=== PATIENT | female | born 1970 | race Hispanic/Latino ===

== ENCOUNTER 2016-06-21 23:12 | Emergency (ER) | payer OTHER ==
[2016-06-22 01:33] VITALS: BMI 20.9
[2016-06-22 01:35] VITALS: BP 111/67; PULSE 85; O2SAT 98
[2016-06-22] MEDS ORDERED: guaiFENesin 200 mg/10 ml Syrup UD PO STA (01:42)
--- NOTE | 2016-06-22 01:47 | ED PDOC ---
Arrival/HPI - General Historian: Patient <Zuleika Patricio - Last Filed: 06/22/16 01:43> <Ulices Rincon - Last Filed: 06/22/16 02:04> - General Chief Complaint: Medical Clearance Time Seen by Provider: 06/22/16 01:42 - History of Present Illness Narrative History of Present Illness (Text): 06/22/16 01:43 45yo female present with complaint of clear productive cough, sore throat, watery eyes, body ache since this morning. She did not take any medication. Denies fever, chills, abdominal pain, nausea, vomiting, any other complaint. ( SintiaZuleika A) Past Medical History - Provider Review Nursing Documentation Reviewed: Yes - Psychiatric Hx Substance Use: No <Zuleika Patricio - Last Filed: 06/22/16 01:43> Family/Social History - Physician Review Nursing Documentation Reviewed: Yes Family/Social History: Unknown Family HX Smoking Status: Never Smoked Hx Alcohol Use: No Hx Substance Use: No <Zuleika Patricio - Last Filed: 06/22/16 01:43> Allergies/Home Meds <Zuleika Patricio - Last Filed: 06/22/16 01:43> <Ulices Rincon - Last Filed: 06/22/16 02:04> Allergies/Adverse Reactions: Allergies No Known Allergies Allergy (Verified 06/22/16 01:32) Review of Systems - Physician Review All systems were reviewed & negative as marked: Yes - Review of Systems Constitutional: Normal Eyes: Other (EAry eyes) ENT: Sore Throat Respiratory: Cough Cardiovascular: Normal Gastrointestinal: Normal Genitourinary Female: Normal Musculoskeletal: Normal Skin: Normal Neurological: Normal Endocrine: Normal Hemo/Lymphatic: Normal Psychiatric: Normal <Zuleika Patricio A - Last Filed: 06/22/16 01:43> Physical Exam Vital Signs Reviewed: Yes Temperature: Afebrile Blood Pressure: Normal Pulse: Regular Respiratory Rate: Normal Appearance: Positive for: Well-Appearing, Non-Toxic, Comfortable Pain Distress: None Mental Status: Positive for: Alert and Oriented X 3 - Systems Exam Head: Present: Atraumatic, Normocephalic Pupils: Present: PERRL Extroacular Muscles: Present: EOMI Conjunctiva: Present: Normal Mouth: Present: Moist Mucous Membranes Pharnyx: Present: ERYTHEMA. No: EXUDATE, TONSILS ENLARGED, Peritonsilar Swelling, Uvular Deviation, Muffled/Hoarse Voice, Strider Neck: Present: Normal Range of Motion Respiratory/Chest: Present: Clear to Auscultation, Good Air Exchange. No: Respiratory Distress, Accessory Muscle Use, Wheezes, Decreased Breath Sounds, Rales, Retracting, Rhonchi Cardiovascular: Present: Regular Rate and Rhythm, Normal S1, S2. No: Murmurs Abdomen: Present: Normal Bowel Sounds. No: Tenderness, Distention, Peritoneal Signs Back: Present: Normal Inspection Upper Extremity: Present: Normal Inspection. No: Cyanosis, Edema Lower Extremity: Present: Normal Inspection. No: Edema Neurological: Present: GCS=15, CN II-XII Intact, Speech Normal Skin: Present: Warm, Dry, Normal Color. 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 <Ulices Rincon - Last Filed: 06/22/16 02:04> Disposition/Present on Arrival - Present on Arrival Any Indicators Present on Arrival: No History of DVT/PE: No History of Uncontrolled Diabetes: No Urinary Catheter: No History of Decub. Ulcer: No History Surgical Site Infection Following: None - Disposition Have Diagnosis and Disposition been Completed?: Yes Disposition Time: 01:50 Patient Plan: Discharge <Zuleika Patricio - Last Filed: 06/22/16 01:43> <Ulices Rincon - Last Filed: 06/22/16 02:04> - Disposition Diagnosis: URI (upper respiratory infection) Discharge Instructions (ExitCare): Upper Respiratory Infection (ED) Additional Instructions: Follow up with your Doctor/Clinic Return to ED for any new or worsening symptoms Prescriptions: Loratadine/Pseudoephedrine [Claritin-D 24 Hour Tablet] 1 each PO DAILY #20 tab.er.24h Benzonatate [Tessalon Perle] 100 mg PO TID #20 capsule Azithromycin [Zithromax] 250 mg PO DAILY #4 tab Ref[place]: [facility] [place] - Follow up with primary Forms: WORK NOTE
[2016-06-22 02:51] VITALS: RESP 16; TEMP 98.1
== END 2016-06-22 02:51 | disposition home or self-care (01) ==
LOC: ED 23:12
DX: J06.9 Acute upper respiratory infection, unspecified (principal)

== ENCOUNTER 2017-12-07 01:08 | Emergency (ER) | payer OTHER, MEDICAID ==
[2017-12-07 01:09] VITALS: BMI 20.9
[2017-12-07 01:32] VITALS: RESP 18; TEMP 97.6; O2SAT 99
[2017-12-07] MEDS ORDERED: Sodium Chloride 0.9% 1,000 ML IV STA (02:47)
--- NOTE | 2017-12-07 02:52 | ED PDOC ---
Arrival/HPI - General Chief Complaint: Shortness Of Breath Time Seen by Provider: 12/07/17 02:33 Historian: Patient - History of Present Illness Narrative History of Present Illness (Text): 12/07/17 02:46 47 year old female, with no significant past medical history, presents to the emergency department for evaluation, status post episode of shortness of breath at about 00:00 today. Patient states she felt dizzy and felt like she couldn't breath. Shes notes the dizziness like a vertigo, not a headache or lightheadedness. No previous occurence. She notes SOB began after she felt dizzy. No chest pain. Patient states she does have a PMD and has not seen one in about a year. Patient denies any fevers, chills, cough, abdominal pain, diarrhea, back pain, neck pain, urinary/bowel changes, or any other complaint. 12/07/17 05:11 Time/Duration: 1-3 hours Activities at Onset: Sleeping Context: Home Past Medical History - Provider Review Nursing Documentation Reviewed: Yes - Psychiatric Hx Substance Use: No - Anesthesia Hx Anesthesia: No Family/Social History - Physician Review Nursing Documentation Reviewed: Yes Family/Social History: No Known Family HX Smoking Status: Never Smoked Hx Alcohol Use: No Hx Substance Use: No Allergies/Home Meds Allergies/Adverse Reactions: Allergies No Known Allergies Allergy (Verified 12/07/17 01:24) Review of Systems - Physician Review All systems were reviewed & negative as marked: Yes - Review of Systems Constitutional: absent: Fevers, Night Sweats Respiratory: SOB. absent: Cough Gastrointestinal: absent: Abdominal Pain, Diarrhea Genitourinary Female: absent: Urine Output Changes Musculoskeletal: absent: Back Pain, Neck Pain Neurological: Dizziness Physical Exam - Physical Exam Narrative Physical Exam (Text): 12/07/17 02:53 Head: Atraumatic. Normocephalic. Eyes: PERRL. EOMI. Conjunctivae are not pale. ENT: Mucous membranes are moist and intact. Oropharynx is clear and symmetric. Neck: Supple. Full ROM. No JVD. No lymphadenopathy. Cardiovascular: Regular rate. Regular rhythm. No murmurs, rubs, or gallops. Distal pulses are 2+ and symmetric. Pulmonary/Chest: No evidence of respiratory distress. Clear to auscultation bilaterally. No wheezing, rales or rhonchi. Abdominal: Soft and non-distended. There is no tenderness. No rebound, guarding, or rigidity. No organomegaly. Good bowel sounds. Back: No CVA tenderness. Extremities: No edema. No cyanosis. No clubbing. Full range of motion in all extremities. No calf tenderness. Skin: Skin is warm and dry. No petechiae. No purpura. Neurological: Alert, awake, and oriented to person, place, time, and situation. Normal speech. Normal CN, Beating Horizontal nystagmus which fatigues. Psychiatric: Good eye contact. Normal interaction, affect, and behavior. 12/07/17 05:10 Vital Signs Temp Pulse Resp BP Pulse Ox 12/07/17 01:30 97.6 F 65 18 115/59 L 99 12/07/17 01:24 20 Medical Decision Making ED Course and Treatment: 12/07/17 02:54 Impression: 47 year old female presents for evaluation status post feeling short of breath. No meningeal signs. L sided lipoma. No cervical tenderness. No FND. Only dizziness described as vergito w/ head movement. SOB likely due to anxiety as pt noted feeling anxious after she felt the world spinning. No hx of blood clots, venous stasis, recent trauma or surgeries. Lipoma to L neck previously diagnosed. Appears like a lipoma, non fluctuant, non ttp, mobile, no crepitus. Dizziness likely 2/2 periphreal cause: horizontal beating nystagmus which fatigues, Neuro exam otherwise unremarkable. No CP. Low pretest wells: PERC OUT. Plan: -- CT C-Spine -- CT Head -- Chest X-ray -- Antivert -- Zofran -- Labs -- Reassess and disposition Progress Notes: 12/07/17 02:56 EKG reviewed, shows: Normal sinus rhythm @ 70bpm No STEMI. 12/07/17 0430 dizziness resolved. strong steady gait. nystagmus resolved. Neuro exam remains unremarkable and w/ out cerebllar signs. CTH unremarkable Xray unremarkable CT Neck w/ fibronodular scarring of lungs - endorsed to pt - Scribe Statement The provider has reviewed the documentation as recorded by the Carmen Onofre Provider Scribe Attestation: All medical record entries made by the Carlaibradha were at my direction and personally dictated by me. I have reviewed the chart and agree that the record accurately reflects my personal performance of the history, physical exam, medical decision making, and the department course for this patient. I have also personally directed, reviewed, and agree with the discharge instructions and disposition. Disposition/Present on Arrival - Present on Arrival Any Indicators Present on Arrival: No History of DVT/PE: No History of Uncontrolled Diabetes: No Urinary Catheter: No History of Decub. Ulcer: No History Surgical Site Infection Following: None - Disposition Have Diagnosis and Disposition been Completed?: Yes Diagnosis: BPV (benign positional vertigo) Disposition: HOME/ ROUTINE Disposition Time: 04:30 Patient Problems: Current Active Problems Problem Status Onset BPV (benign positional vertigo) Acute Condition: GOOD Discharge Instructions (ExitCare): Vertigo (a Type of Dizziness) Additional Instructions: FOLLOW UP WITH YOUR PRIMARY CARE DOCTOR OR DR. CARDOZO. ALSO ASK THEM TO REFER YOU TO A MANAGER PERSONAL. SEE THE NEUROLOGIST LIKE WE DISCUSSED WELL. TONYA URBINA, thank you for letting us take care of you today. Your provider was Willian Harmon and you were treated for trouble breathing / dizzy. The emergency medical care you received today was directed at your acute symptoms. If you were prescribed any medication, please fill it and take as directed. It may take several days for your symptoms to resolve. Return to the Emergency Department if your symptoms worsen, do not improve, or if you have any other problems. Please contact your doctor or call one of the physicians/clinics you have been referred to that are listed on the Patient Visit Information form that is included in your discharge packet. Bring any paperwork you were given at discharge with you along with any medications you are taking to your follow up visit. Our treatment cannot replace ongoing medical care by a primary care provider outside of the emergency department. Thank you for allowing the [facility] team to be part of your care today. If you had an X-Ray or CT scan: A Radiologist will review the ED reading if any change in treatment is needed we will contact you. If you had a blood, urine, or wound culture: It will take several days for the results, if any change in treatment is needed we will contact you. If you had an STI test: It will take 48 hours for the results. Please call after 1 week if you have not heard back. Prescriptions: Meclizine [Antivert] 12.5 mg PO QID PRN 3 Days #12 tab PRN Reason: vertigo Referrals: Jarrod Echevarria MD [Primary Care Provider] - Follow up with primary Bertha Adams MD [Medical Doctor] - Follow up with primary Alexander Beltran MD [Staff Provider] - Follow up with primary Forms: [employer] (Swedish)
[2017-12-07 03:57] LABS: BASO # 0.03 K/mm3 (0.0-2.0); BASO % 0.3 % (0.0-3.0); EOS # 0.1 (0.0-0.7); EOS % 0.8 % (1.5-5.0); GRAN # 6.5 (1.4-6.5); GRAN % 74.5 % (50.0-68.0); HEMOGLOBIN 13.7 g/dL (12.0-16.0); LYMPH # 1.5 (1.2-3.4); LYMPH % 17.4 % (22.0-35.0); MEAN CELL VOLUME 86.3 fl (80.0-105.0); MEAN CORPUSCULAR HEMOGLOBIN 29.8 pg (25.0-35.0); MEAN CORPUSCULAR HGB CONC 34.5 g/dl (31.0-37.0); MEAN PLATELET VOLUME 11.8 fl (7.0-11.0); MONO # 0.6 (0.1-0.6); RBC 4.6 10^6/uL (3.5-6.1); RED CELL DISTRIBUTION WIDTH 12.6 % (11.5-14.5); WHITE BLOOD COUNT 8.7 10^3/ul (4.5-11.0)
[2017-12-07 04:14] LABS: ALB/GLOB RATIO 1.2 (1.1-1.8); ALBUMIN 3.8 g/dL (3.0-4.8); ALT/SGPT 24 U/L (7-56); AST/SGOT 20 U/L (14-36); BLOOD UREA NITROGEN 12 mg/dL (7-21); GFR NON-AFRICAN AMERICAN > 60
[2017-12-07 04:24] LABS: TROPONIN I < 0.01 ng/mL
[2017-12-07 06:23] VITALS: BP 115/72; PULSE 80
--- NOTE | 2017-12-07 08:15 | CT ---
Date of service: 12/07/2017 PROCEDURE: CT HEAD WITHOUT CONTRAST. HISTORY: vertigo COMPARISON: None available. TECHNIQUE: Axial computed tomography images were obtained through the head/brain without intravenous contrast. Radiation dose: Total exam DLP = 858 mGy-cm. This CT exam was performed using one or more of the following dose reduction techniques: Automated exposure control, adjustment of the mA and/or kV according to patient size, and/or use of iterative reconstruction technique. FINDINGS: HEMORRHAGE: No intracranial hemorrhage. BRAIN: No mass effect or edema. No atrophy or chronic microvascular ischemic changes. VENTRICLES: Unremarkable. No hydrocephalus. CALVARIUM: Unremarkable. PARANASAL SINUSES: Unremarkable as visualized. No significant inflammatory changes. MASTOID AIR CELLS: Unremarkable as visualized. No inflammatory changes. OTHER FINDINGS: The report concurs with the preliminary [facility] report IMPRESSION: No acute intracranial findings
--- NOTE | 2017-12-07 08:18 | CT ---
Date of service: 12/07/2017 PROCEDURE: CT Cervical Spine without contrast HISTORY: vertigo, L lipoma COMPARISON: None available. TECHNIQUE: Axial computed tomography images were obtained of the cervical spine without the use of intravenous contrast. Coronal and sagittal reformatted images were created and reviewed. Radiation dose: Total exam DLP = 260 mGy-cm. This CT exam was performed using one or more of the following dose reduction techniques: Automated exposure control, adjustment of the mA and/or kV according to patient size, and/or use of iterative reconstruction technique. FINDINGS: VERTEBRAE: No fracture. Normal alignment. No destructive bony lesion. DISCS/SPINAL CANAL/NEURAL FORAMINA: No significant central canal or neural foraminal stenosis. Discs heights are grossly preserved. PARASPINAL SOFT TISSUES: Severe biapical scarring OTHER FINDINGS: The report concurs with the preliminary report IMPRESSION: Unremarkable CT of the cervical spine.
--- NOTE | 2017-12-07 10:15 | RAD ---
Date of service: 12/07/2017 HISTORY: Shortness of breath COMPARISON: No prior. FINDINGS: LUNGS: The lungs are well inflated. There are fibrotic changes and nodular opacities in the upper lobes. PLEURA: No significant pleural effusion identified, no pneumothorax apparent. CARDIOVASCULAR: Normal. OSSEOUS STRUCTURES: No significant abnormalities. VISUALIZED UPPER ABDOMEN: Normal. OTHER FINDINGS: None. IMPRESSION: Fibro nodular disease in both upper lobes, nonspecific and could represent atypical pneumonia. No lobar pneumonia. Clinical correlation is advised. Follow-up to resolution is advised.
--- NOTE | 2017-12-07 16:07 | CARD ---
APPROVED REPORT Date of service: 12/07/2017 EKG Measurement Heart [id number] <Conclusion> Normal sinus rhythm RSR' or QR pattern in V1 suggests right ventricular conduction delay Borderline ECG
== END 2017-12-07 06:23 | disposition home or self-care (01) ==
LOC: ED 01:08
DX: H81.10 Benign paroxysmal vertigo, unspecified ear (principal)
CPT/HCPCS: 70450; 71045; 72125; 80053; 83735; 84484; 85025; 93005; 96361; 96374; 99284; J2405; J7030

== ENCOUNTER 2018-03-17 20:42 | Emergency (ER) | payer OTHER, MEDICAID ==
[2018-03-17 20:42] VITALS: BMI 20.9
[2018-03-17 21:13] VITALS: TEMP 98.3
[2018-03-17] MEDS ORDERED: Sodium Chloride 0.9% 1,000 ML IV STA (21:20)
--- NOTE | 2018-03-17 21:35 | ED PDOC ---
Arrival/HPI <MckenzieUlices - Last Filed: 03/17/18 22:36> - General Historian: Patient - History of Present Illness Narrative History of Present Illness (Text): Patient is a 47 F with no PMH who presents to [facility] [place] emergency department after 2 days of cough productive of yellow sputum, congestion,SOB and chest pain associated with coughing, fevers, chills, body aches, abdominal pain, headache and nausea. She admits to notveing gotten her flu shot this year but denies recent sick contacts. 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 She otherwise denies constant chest pain, constant SOB, dizziness, vomiting, dysuria, stool changes, diarrhea and extremity pain/weakness. She is a former smoker (quit 9 yrs ago) and denies ETOh or illicit drug use. 03/17/18 21:30 03/17/18 22:08 Time/Duration: Other (2-3 days) Symptom Onset: Gradual Symptom Course: Unchanged Severity Level: 7, Moderate <Marlyn Ernst - Last Filed: 03/17/18 23:23> - General Chief Complaint: Cough, Cold, Congestion Time Seen by Provider: 03/17/18 20:58 Past Medical History - Provider Review Nursing Documentation Reviewed: Yes - Infectious Disease Hx of Infectious Diseases: None - Psychiatric Hx Substance Use: No - Anesthesia Hx Anesthesia: No <Marlyn Ernst - Last Filed: 03/17/18 23:23> Family/Social History - Physician Review Nursing Documentation Reviewed: Yes Family/Social History: Unknown Family HX Smoking Status: Former Smoker Hx Alcohol Use: No Hx Substance Use: No <Marlyn Ernst - Last Filed: 03/17/18 23:23> Allergies/Home Meds <MckenzieUlices - Last Filed: 03/17/18 22:36> <Marlyn Ernst - Last Filed: 03/17/18 23:23> Allergies/Adverse Reactions: Allergies No Known Allergies Allergy (Verified 03/17/18 21:08) Review of Systems - Physician Review All systems were reviewed & negative as marked: Yes - Review of Systems Constitutional: Fatigue, Fevers Eyes: absent: Vision Changes Respiratory: SOB, Cough Cardiovascular: absent: Edema, Calf Pain, Syncope Gastrointestinal: Abdominal Pain, Nausea. absent: Stool Changes, Constipation, Diarrhea, Vomiting, Hematochezia, Hematemesis Genitourinary Female: absent: Dysuria Musculoskeletal: absent: Arthralgias, Back Pain Skin: absent: Rash, Laceration, Abscess Neurological: Headache. absent: Dizziness, Focal Weakness, Speech Changes, Facial Droop Endocrine: absent: Diaphoresis Psychiatric: Anxiety <Marlyn Ernst - Last Filed: 03/17/18 23:23> Physical Exam Vital Signs Temp Pulse Resp BP Pulse Ox 03/17/18 21:11 98.3 F 99 H 16 113/52 L 100 <Ulices Rincon - Last Filed: 03/17/18 22:36> Vital Signs Temp Pulse Resp BP Pulse Ox 03/17/18 21:11 98.3 F 99 H 16 113/52 L 100 Temperature: Afebrile Blood Pressure: Normal Pulse: Tachycardic Respiratory Rate: Normal Appearance: Positive for: Well-Appearing, Non-Toxic, Uncomfortable Pain Distress: Mild Mental Status: Positive for: Alert and Oriented X 3 - Systems Exam Head: Present: Atraumatic, Normocephalic Extroacular Muscles: Present: EOMI Mouth: Present: Dry Respiratory/Chest: Present: Clear to Auscultation. No: Respiratory Distress, Accessory Muscle Use Cardiovascular: Present: Normal S1, S2, Tachycardic. No: Murmurs Abdomen: No: Tenderness, Distention, Peritoneal Signs, Rebound, Guarding Upper Extremity: Present: Normal Inspection, Normal ROM, NORMAL PULSES. No: Cyanosis, Edema Lower Extremity: Present: Normal Inspection, NORMAL PULSES. No: Edema, CALF TENDERNESS Neurological: Present: GCS=15, CN II-XII Intact, Speech Normal Skin: Present: Warm, Dry, Normal Color. No: Rashes Psychiatric: Present: Alert, Oriented x 3, Normal Insight, Normal Concentration <Marlyn Ernst - Last Filed: 03/17/18 23:23> Medical Decision Making ED Course and Treatment: Impression: Pt seen and evaluated with resident. Aware and agree with HPI, clinical findings, plan, and management. Pt, with no past medical history, presented for cough, congestion, shortness of breath, and chest pain. Plan: -- EKG -- Labs -- Rapid influenza -- IV fluids -- Zofran -- Reassess and disposition - Medication Orders Current Medication Orders: Sodium Chloride (Sodium Chloride 0.9%) 1,000 mls @ 999 mls/hr IV .Q1H1M STA Stop: 03/17/18 22:20 Last Admin: 03/17/18 21:37 Dose: 999 mls/hr eMAR Start Stop Document 03/17/18 21:37 JOL (Rec: 03/17/18 21:37 [id number] Intravenous Solution Start Date 03/17/18 Start Time 21:37 End Date 03/17/18 End time 22:38 Total Infusion Time 61 Discontinued Medications Ondansetron HCl (Zofran Inj) 4 mg IVP STAT STA Stop: 03/17/18 21:21 Last Admin: 03/17/18 21:36 Dose: 4 mg IVP Administration Document 03/17/18 21:36 JOL (Rec: 03/17/18 21:36 [facility] [id number]) Charges for Administration # of IVP Administrations 1 <Ulices Rincon - Last Filed: 03/17/18 22:36> ED Course and Treatment: Impression: 47 yr old female with cough, congestion, f/c, nausea and body aches, no PMH and no flu shot this year Plan: rapid flu cbc cmp EKG IVF zofran POC urine preg CXR reassess and dispo 03/17/18 21:39 symptoms improved with fluids and zofran 03/17/18 22:14 CXR: no acute cardiopulmonary process, my read discussed with Dr. Rincon who agrees 03/17/18 23:22 - Medication Orders Current Medication Orders: Sodium Chloride (Sodium Chloride 0.9%) 1,000 mls @ 999 mls/hr IV .Q1H1M STA Stop: 03/17/18 22:20 Discontinued Medications Ondansetron HCl (Zofran Inj) 4 mg IVP STAT STA Stop: 03/17/18 21:21 <Marlyn Ernst - Last Filed: 03/17/18 23:23> - PA / FLEXIBLE MACHINING SYSTEM MACHINIST / Resident Statement ALLYSON has reviewed & agrees with the documentation as recorded. ALLYSON has examined the patient and agrees with the treatment plan. <Ulices Rincon - Last Filed: 03/17/18 22:36> Disposition/Present on Arrival <Uliecs Rincon - Last Filed: 03/17/18 22:36> - Present on Arrival Any Indicators Present on Arrival: No History of DVT/PE: No History of Uncontrolled Diabetes: No Urinary Catheter: No History of Decub. Ulcer: No History Surgical Site Infection Following: None - Disposition Have Diagnosis and Disposition been Completed?: Yes Disposition Time: 22:40 Patient Plan: Discharge <Marlyn Ernst - Last Filed: 03/17/18 23:23> - Disposition Diagnosis: Flu-like symptoms, Bronchitis Disposition: HOME/ ROUTINE Patient Problems: Current Active Problems Problem Status Onset Flu-like symptoms Acute Bronchitis Acute Condition: IMPROVED Discharge Instructions (ExitCare): Acute Bronchitis, Adult (DC) Additional Instructions: Upon discharge please follow up with your primary care physician within 3-5 days for follow up. You have been given the following prescriptions: Azithromycin 250mg tablet take by mouth Daily for 6 days Oseltamivir (tamiflu) 75 mg tablet take one tablet by mouth twice daily for 5 days If symptoms worsen/ return or if new concerning symptoms develop please return to the nearest emergency department for evaluation. Prescriptions: Oseltamivir Cap [Tamiflu] 75 mg PO BID #10 cap Azithromycin [Z-Jah] 250 mg PO DAILY #6 tab Forms: [facility] (Latvian), WORK NOTE
[2018-03-17 21:56] LABS: ALB/GLOB RATIO 1.2 (1.1-1.8); ALBUMIN 3.7 g/dL (3.0-4.8); ALT/SGPT 34 U/L (7-56); AST/SGOT 24 U/L (14-36); BLOOD UREA NITROGEN 11 mg/dL (7-21); CALCIUM 8.7 mg/dL (8.4-10.5); GFR NON-AFRICAN AMERICAN > 60
[2018-03-17 21:59] LABS: BASO # 0.01 K/mm3 (0.0-2.0); BASO % 0.1 % (0.0-3.0); GRAN # 10.08 (1.4-6.5); GRAN % 86.6 % (50.0-68.0); LYMPH # 0.6 (1.2-3.4); LYMPH % 4.7 % (22.0-35.0); MEAN CELL VOLUME 87.3 fl (80.0-105.0); MEAN CORPUSCULAR HEMOGLOBIN 29.5 pg (25.0-35.0); MEAN CORPUSCULAR HGB CONC 33.8 g/dl (31.0-37.0); MEAN PLATELET VOLUME 11.7 fl (7.0-11.0); MONO % 8.6 % (1.0-6.0); PLATELET COUNT 138 10^3/uL (120.0-450.0); RBC 4.41 10^6/uL (3.5-6.1); RED CELL DISTRIBUTION WIDTH 12.3 % (11.5-14.5); WHITE BLOOD COUNT 11.6 10^3/uL (4.5-11.0)
[2018-03-17] MEDS ORDERED: Magnesium Sulfate 1 gm in D5W 1 GM/100 ML BAG IVPB ONE (22:00)
[2018-03-17] MEDS ORDERED: Potassium & Sodium Phosphate PO ONE (22:01)
[2018-03-17 22:19] LABS: ATYPICAL LYMPHOCYTE 5 % (0.0-0.0); BAND 2 % (0-2); LYMPHOCYTE 3 % (22.0-35.0); MONOCYTE 0 % (1.0-6.0); NEUTROPHIL 90 % (50.0-70.0)
[2018-03-17 23:43] VITALS: BP 115/68; PULSE 78; RESP 18; O2SAT 99
--- NOTE | 2018-03-18 10:19 | RAD ---
Date of service: 03/17/2018 HISTORY: Cough. COMPARISON: 12/07/2017 single-view chest FINDINGS: LUNGS: Fibronodular changes in the apices. Possible left upper lobe pulmonary nodule. The finding is marked on the study for review. PLEURA: Apical pleural thickening. CARDIOVASCULAR: No atherosclerotic calcification present Normal. OSSEOUS STRUCTURES: No significant abnormalities. VISUALIZED UPPER ABDOMEN: Normal. OTHER FINDINGS: None. IMPRESSION: 1. Apical pleural thickening, upper lobe fibronodular changes. 2. Questionable left upper lobe nodule. Recommendations for follow-up: Elective CT scan of the thorax. Per institutional protocol, and based on the recommendation for elective follow-up, study will be placed in the physician assistant golf professional file for review, triage and final disposition.
== END 2018-03-17 23:30 | disposition home or self-care (01) ==
LOC: ED 20:42
DX: J11.1 Influenza due to unidentified influenza virus with other respiratory manifestations (principal); J40 Bronchitis, not specified as acute or chronic
CPT/HCPCS: 71045; 80053; 81025; 83735; 84100; 85025; 87804; 96361; 96365; 96375; 99284; J2405; J3475; J7030